=== PATIENT | female | born 1930 | race Caucasian/White ===

== ENCOUNTER 2017-12-04 11:26 | Emergency (ER) | payer OTHER ==
[2017-12-04 12:40] LABS: Potassium 4.1 mEq/L (3.6-5.0)
[2017-12-04 12:43] LABS: Albumin 3.7 g/dL (3.2-5.5); Bilirubin Total 0.5 mg/dL (0.3-1.2)
[2017-12-04 13:26] LABS: Absolute Monocytes 0.4 K/uL (0.1-1.3); Absolute Neutrophil 3.5 K/uL (1.8-8.0); Basophils % 0.8 % (0-1.3); Eosinophils % 1.5 % (0-4.4); Hematocrit 34.7 % (36.0-45.0); Lymphocytes % 19.9 % (15.3-44.8); MCV 96.4 fL (80-100); MPV 9.2 fL (7.6-11.3); Monocytes % 7.8 % (3.3-12.3)
--- NOTE | 2017-12-04 14:41 | RAD REPORT ---
EXAM DESCRIPTION: RAD - Chest Single View - 12/04/2017 2:32 pm CLINICAL HISTORY: Weakness, shortness of breath, cough COMPARISON: August 25 TECHNIQUE: AP portable chest image was obtained 1359 hours . FINDINGS: Fibrotic lung pattern is present. No consolidation or mass. Extent of chronic interstitial lung disease could mask early interstitial edema or infiltrate. Trachea is midline. Heart and vascul ature are normal. No measurable pleural effusion and no pneumothorax. No gross bony abnormality seen. No acute aortic findings suspected. IMPRESSION: Chronic interstitial lung disease is present potentially masking early interstitial lana a or infiltrate. Chest findings are not substantially different from the August study.
[2017-12-04 15:10] LABS: Urine Appearance CLEAR; Urine Bilirubin NEGATIVE (NEG); Urine Blood 2+ (NEG); Urine Color YELLOW; Urine Glucose NEGATIVE (NEG); Urine Microscopic Reflex ORDER UMIC; Urine Protein 2+ (NEG); Urine Specific Gravity 1.015 (1.005-1.030); Urine pH >9.0 (5.0-7.0)
[2017-12-04 15:11] LABS: Urine Bacteria <20 /HPF (<20); Urine Culture Reflex Order REFLEXED; Urine RBC 20-50 /HPF (NONE SEEN)
--- NOTE | 2017-12-04 15:16 | ER ---
Nurse's Notes [facility] Name: Evette Treviño Age: 87 yrs Sex: Female : 1930 Arrival Date: 12/04/2017 Time: 11:28 Bed 14 Private MD: Diagnosis: acute cystitis with hematuria Presentation: 12/04 11:34 Presenting complaint: EMS states: " Daughter reports that pt was seated in the bedroom ph and wanted to get up to use the restroom but could not move, also reports that pt was unable to speak. Pt currently awake and alert, moving all extremities and speaking.". Transition of care: patient was not received from another setting of care. Onset of symptoms was December 04, 2017. Care prior to arrival: IV initiated. 20 GA, in the right antecubital area, Glucose check: 140 Oxygen administered. via nasal cannula. 11:34 Method Of Arrival: EMS: [facility] 11:34 Acuity: CHAVO 3 ph 11:52 Mechanism of Injury: No Mechanism of Injury. ph Historical: - Allergies: 11:45 No Known Drug Allergies; ph - Home Meds: 11:45 Albuterol Inhl [Active]; telmisartan 80 mg Oral tab 1 tab once daily [Active]; ph metoprolol tartrate 50 mg Oral tab 1 tab 2 times per day [Active]; venlafaxine 75 mg oral tr24 1 tab once daily [Active]; verapamil 240 mg Oral TbER 1 tab once daily [Active]; escitalopram oxalate 10 mg Oral tab 1 tab once daily [Active]; Levothroid 150 mcg Oral tab 1 tab once daily except on Monday [Active]; cetirizine 10 mg Oral tab 1 tab once daily [Active]; - PMHx: 11:45 Cholelithiasis; Hypertension; Thyroid problem; ph - Immunization history:: Adult Immunizations unknown. - Social history:: Smoking status: Patient/guardian denies using tobacco. Screenin:50 Abuse screen: Denies threats or abuse. Denies injuries from another. Nutritional ph screening: No deficits noted. Tuberculosis screening: No symptoms or risk factors identified. Fall Risk No fall in past 12 months (0 pts). No secondary diagnosis (0 pts). IV access (20 points). Ambulatory Aid- Crutches/Cane/Walker (15 pts). Gait- Weak (10 pts.). Mental Status- Oriented to own ability (0 pts). Total Breaux Fall Scale indicates High Risk Score (45 or more points). Fall prevention measures have been instituted. Side Rails Up X 2 Placed Close to Nursing Station Frequent Obs/Assessments Occuring Family Present and informed to notify staff if the need to leave the bedside As available patient and family educated on Fall Prevention Program and Strategies. 15:57 Sepsis Screening: SIRS - Systemic Inflammatory Response Syndrome: 2 or more indicates ph positive screen: Patient has a negative screen for severe sepsis based on SIRS criteria. Assessment: 11:45 General: Appears in no apparent distress. comfortable, slender, Behavior is calm, ph cooperative, quiet, Denies fever. Pain: Pain: Denies pain. 11:45 Neuro: Level of Consciousness is awake, alert, obeys commands, Oriented to person, ph place, situation, Denies dizziness, headache. Cardiovascular: Denies chest pain, shortness of breath, Capillary refill < 3 seconds Patient's skin is warm and dry. Respiratory: Reports shortness of breath Airway is patent Respiratory effort is even, unlabored, Respiratory pattern is regular, symmetrical. GI: Patient currently denies abdominal pain, diarrhea, nausea, vomiting. : Denies burning with urination, urinary frequency. Derm: Skin is fragile, is thin, Skin is pink, warm \\T\\ dry. Musculoskeletal: Circulation, motion, and sensation intact. Range of motion: intact in all extremities. 12:30 Reassessment: Patient appears in no apparent distress at this time. Patient and/or ph family updated on plan of care and expected duration. Pain level reassessed. Pt resting quietly, awaiting lab and radiology results. 13:49 Reassessment: Patient appears in no apparent distress at this time. Patient and/or ph family updated on plan of care and expected duration. Pain level reassessed. Pt awake and alert, oriented to person, place, and situation, pt placed on bedpan in attempt to obtain urine sample, pt unable to urinate at this time, pt cleaned of incontinence and brrief changed, daughter at bedside. 14:25 Reassessment: Patient appears in no apparent distress at this time. No changes from ph previously documented assessment. Patient and/or family updated on plan of care and expected duration. Pain level reassessed. Pt straight cathed to obtain urine specimen, tolerated well, awaiting results. 15:50 Reassessment: Patient appears in no apparent distress at this time. Patient and/or ph family updated on plan of care and expected duration. Pain level reassessed. Spoke w/ pt's daughter on phone and informed her that pt was up for discharge, awaiting ride home. 16:16 Reassessment: Family member called ED and states that pt's niece will be coming to pick ph her up when she gets off of work at 6 pm. Pt resting quietly at this time, denies pain or nausea. 17:30 Reassessment: Patient appears in no apparent distress at this time. Patient and/or ph family updated on plan of care and expected duration. Pain level reassessed. 18:35 Reassessment: Patient appears in no apparent distress at this time. No changes from ph previously documented assessment. Pt discharged home with family. Vital Signs: 11:37 BP 178 / 62; Pulse 87; Resp 16; Temp 98.1(TE); Pulse Ox 96% on R/A; Pain 0/10; ph 12:30 BP 166 / 60; Pulse 79; Resp 16; Pulse Ox 93% on R/A; dh3 13:30 BP 177 / 67; Pulse 97; Resp 17; Pulse Ox 96% on R/A; dh3 15:00 BP 184 / 90; Pulse 82; Resp 18; Temp 98.0; Pulse Ox 99% on R/A; ph 16:00 BP 198 / 100; Pulse 91; Resp 20; Pulse Ox 95% on R/A; ph 17:00 BP 187 / 98; Pulse 97; Resp 18; Pulse Ox 95% on R/A; ph 18:03 BP 200 / 95; Pulse 97; Resp 22; Temp 98.3(O); Pulse Ox 95% on R/A; ph 18:40 BP 187 / 92; Pulse 95; Resp 20; Temp 98.3(O); Pulse Ox 95% on R/A; ph ED Course: 11:28 Patient arrived in ED. iw 11:28 Moncho Rebollar MD is Attending Physician. ps1 11:34 Susan Huynh, ALEX is Primary Nurse. ph 11:37 Triage completed. ph 11:39 Arm band placed on. ph 12:00 No provider procedures requiring assistance completed. Maintain EMS IV. Dressing ph intact. Good blood return noted. Site clean \\T\\ dry. Gauge \\T\\ site: 20 RAC. 13:51 Patient has correct armband on for positive identification. Placed in gown. Bed in low ph position. Call light in reach. Side rails up X2. Pulse ox on. NIBP on. Warm blanket given. 14:06 X-ray completed. Portable x-ray completed in exam room. jr1 14:07 CXR XRAY In Process Unspecified. EDMS 14:20 Straight cath inserted, using sterile technique, 16 Fr. Specimen obtained. Returned ph clear yellow urine. Patient tolerated well. 16:50 EKG done, by wind turbine blade repair technician. reviewed by Moncho Rebollar MD. at1 18:45 IV discontinued, intact, bleeding controlled, No redness/swelling at site. Pressure ph dressing applied. Administered Medications: 16:55 Drug: Rocephin 1 grams Route: IV; Rate: calculated rate; Site: left hand; ph Outcome: 15:15 Discharge ordered by MD. ps1 18:42 Patient left the ED. ph 18:42 Discharged to home via wheelchair, with family. ph 18:42 Condition: good 18:42 Discharge instructions given to family, Instructed on discharge instructions, follow up and referral plans. medication usage, Demonstrated understanding of instructions, follow-up care, medications, Prescriptions given X 1. Signatures: Dispatcher [employer] EDMS [place] jr1 Justine Pate RN RN Shonda de jesus, rivet bucker EKG Tat1 Susan Huynh RN RN [facility]ourt[facility] Moncho Rebollar MD MD ps1 Corrections: (The following items were deleted from the chart) 15:18 11:45 Pain: ph ph 18:07 16:16 Reassessment: Family member called ED and states that pt's niece will be coming ph to pick her up when she gets off of work at 8 pm. Pt resting quietly at this time, denies pain or nausea ph
--- NOTE | 2017-12-04 15:16 | EDPHYS ---
Physician Documentation [facility] Name: Evette Treviño Age: 87 yrs Sex: Female : 1930 Arrival Date: 12/04/2017 Time: 11:28 Bed 14 Private MD: ED Physician Moncho Rebollar HPI: 12/04 13:45 This 87 yrs old Female presents to ER via EMS with complaints of fatigue. ps1 13:45 pt was at home and started to get out of bed. Daughter states that she could not and ps1 patient states that she didn't know what she was doing but that she could not do it. Daughter thought she was having a stroke. She was ambulatory prior to getting on the EMS stretcher with a negative [place]. NIHSS 0 on arrival and patient speaking fluently. Feels better. . Onset: The symptoms/episode began/occurred this morning. Severity of symptoms: At their worst the symptoms were moderate in the emergency department the symptoms have resolved. The patient has not experienced similar symptoms in the past. Historical: - Allergies: 11:45 No Known Drug Allergies; ph - Home Meds: 11:45 Albuterol Inhl [Active]; telmisartan 80 mg Oral tab 1 tab once daily [Active]; ph metoprolol tartrate 50 mg Oral tab 1 tab 2 times per day [Active]; venlafaxine 75 mg oral tr24 1 tab once daily [Active]; verapamil 240 mg Oral TbER 1 tab once daily [Active]; escitalopram oxalate 10 mg Oral tab 1 tab once daily [Active]; Levothroid 150 mcg Oral tab 1 tab once daily except on Monday [Active]; cetirizine 10 mg Oral tab 1 tab once daily [Active]; - PMHx: 11:45 Cholelithiasis; Hypertension; Thyroid problem; ph - Immunization history:: Adult Immunizations unknown. - Social history:: Smoking status: Patient/guardian denies using tobacco. ROS: 13:45 Constitutional: Negative for fever, chills, and weight loss, Eyes: Negative for injury, ps1 pain, redness, and discharge, Neck: Negative for injury, pain, and swelling, Cardiovascular: Negative for chest pain, palpitations, and edema, Respiratory: Negative for shortness of breath, cough, wheezing, and pleuritic chest pain, Abdomen/GI: Negative for abdominal pain, nausea, vomiting, diarrhea, and constipation, MS/Extremity: Negative for injury and deformity, Skin: Negative for injury, rash, and discoloration. Exam: 13:45 Constitutional: This is a well developed, well nourished patient who is awake, alert, ps1 and in no acute distress. Head/Face: Normocephalic, atraumatic. Eyes: Pupils equal round and reactive to light, extra-ocular motions intact. Lids and lashes normal. Conjunctiva and sclera are non-icteric and not injected. Chest/axilla: Normal chest wall appearance and motion. Nontender with no deformity. No lesions are appreciated. Cardiovascular: Regular rate and rhythm. No gallops, murmurs, or rubs. Normal PMI, no JVD. No pulse deficits. Respiratory: Lungs have equal breath sounds bilaterally, clear to auscultation and percussion. No rales, rhonchi or wheezes noted. No increased work of breathing, no retractions or nasal flaring. Abdomen/GI: Soft, non-tender, with normal bowel sounds. No distension or tympany. No guarding or rebound. No evidence of tenderness throughout. Skin: Warm, dry with normal turgor. Normal color with no rashes, no lesions, and no evidence of cellulitis. MS/ Extremity: Pulses equal, no cyanosis. Neurovascular intact. Full, normal range of motion. 13:45 Neuro: Orientation: to person, place \T\ time. 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 Able to orient but lacking details. . Vital Signs: 11:37 BP 178 / 62; Pulse 87; Resp 16; Temp 98.1(TE); Pulse Ox 96% on R/A; Pain 0/10; ph 12:30 BP 166 / 60; Pulse 79; Resp 16; Pulse Ox 93% on R/A; dh3 13:30 BP 177 / 67; Pulse 97; Resp 17; Pulse Ox 96% on R/A; dh3 15:00 BP 184 / 90; Pulse 82; Resp 18; Temp 98.0; Pulse Ox 99% on R/A; ph 16:00 BP 198 / 100; Pulse 91; Resp 20; Pulse Ox 95% on R/A; ph 17:00 BP 187 / 98; Pulse 97; Resp 18; Pulse Ox 95% on R/A; ph 18:03 BP 200 / 95; Pulse 97; Resp 22; Temp 98.3(O); Pulse Ox 95% on R/A; ph 18:40 BP 187 / 92; Pulse 95; Resp 20; Temp 98.3(O); Pulse Ox 95% on R/A; ph MDM: 11:32 Patient medically screened. ps1 15:17 Data reviewed: vital signs, nurses notes, EMS record, lab test result(s), EKG, ps1 radiologic studies. ED course: labs reviewed. CW acute cystitis with hematuria. Stable. Home with Keflex. . 12/04 12:22 Order name: Comprehensive Metabolic Panel; Complete Time: 12:50 EDMS 12/04 12:22 Order name: CBC with Automated Diff; Complete Time: 13:44 EDMS 12/04 12:22 Order name: Urinalysis; Complete Time: 15:14 EDSC 12/04 11:32 Order name: CXR XRAY; Complete Time: 14:50 ps1 12/04 11:32 Order name: EKG - Nurse/Tech; Complete Time: 15:19 ps1 12/04 14:33 Order name: Urine Dipstick--Ancillary (enter results); Complete Time: 15:53 jw5 12/04 15:11 Order name: Urine Microscopic Only EDSC 12/04 15:13 Order name: Urine Culture EDSC 12/04 16:15 Order name: Diet Heart Healthy; Complete Time: 16:38 ph 12/04 17:16 Order name: EKG Electrocardiogram EDMS Administered Medications: 16:55 Drug: Rocephin 1 grams Route: IV; Rate: calculated rate; Site: left hand; ph Disposition: 12/04/17 15:15 Discharged to Home. Impression: acute cystitis with hematuria. - Condition is Stable. - Discharge Instructions: Urinary Tract Infection, [id number]. - Prescriptions for Keflex 500 mg Oral Capsule - take 1 capsule by ORAL route every 8 hours for 5 days; 30 capsule. - Medication Reconciliation Form, Thank You Letter, Antibiotic Education, Prescription Opioid Use form. - Follow up: Private Physician; When: As needed; Reason: Recheck today's complaints, Continuance of care, Re-evaluation by your physician. Follow up: Emergency Department; When: As needed; Reason: Worsening of condition. - Problem is new. - Symptoms are unchanged. Signatures: Dispatcher [employer] Susan Mays RN RN Moncho Zaragoza MD MD ps1 Corrections: (The following items were deleted from the chart) 15:55 12:34 URINALYSIS+U.LAB.BRZ ordered. EDMS EDMS 17:16 12:34 CBC+H.LAB.BRZ ordered. EDMS EDMS 17:16 12:34 COMPREHENSIVE METABOLIC PANEL+C.LAB.BRZ ordered. EDMS EDMS
[2017-12-04 15:44] LABS: Urine Blood TRACE (NEG); Urine Glucose NEGATIVE (NEG); Urine Protein 1+ (NEG); Urine Specific Gravity <1.005 (1.005-1.030); Urine pH 5.5 (5.0-7.0)
[2017-12-04] MEDS ORDERED: CEFTRIAXONE/SWI 1gm 1 GM/10 ML SYR ONE (17:15)
[2017-12-04 18:53] VITALS: O2SAT 95
[2017-12-04 18:56] VITALS: BP 200/95; TEMP 98.3
--- NOTE | 2017-12-05 08:28 | EKG ---
Test Date: 2017-12-04 Test Time: 16:41:15 Power Engineer: LALO MEASUREMENT RESULTS: Intervals: Rate: 94 OH: 172 QRSD: 82 QT: 382 QTc: 477 [place]: P: 73 OH: 172 QRS: 60 T: 30 INTERPRETIVE STATEMENTS: Normal sinus rhythm Minimal voltage criteria for LVH, may be normal variant Borderline ECG Compared to ECG 08/25/2017 09:38:46 Left ventricular hypertrophy now present ST (T wave) deviation no longer present Prolonged QT interval no longer present Electronically Signed On 12-05-17 08:26:23 CDT by Mg Posada
== END 2017-12-04 18:42 | disposition home or self-care (01) ==
LOC: ER 11:26
DX: N30.01 Acute cystitis with hematuria (principal); I10 Essential (primary) hypertension; E07.9 Disorder of thyroid, unspecified
CPT/HCPCS: 36415; 51702; 71045; 80053; 85025; 87086; 87088; 93005; 96374; 99284; J0696; 81003; 81015